=== PATIENT | male | born 2000 | race Caucasian/White ===

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

== ENCOUNTER 2021-10-07 19:03 | Emergency (ER) | payer OTHER ==
[2021-10-07 19:09] VITALS: BP 112/55; PULSE 74; TEMP 98.1; BMI 25.7
[2021-10-07] MEDS ORDERED: FAMOTIDINE 20 MG/50 ML IVPB 20 MG/50 ML MG IVPB ONE ×2 (20:21→20:25)
[2021-10-07 21:51] LABS: BASO % 0.8 % (0-2.0); EOS % 6.9 % (0-4.5); HEMATOCRIT 41.1 % (35.4-49); HEMOGLOBIN 13.4 GM/dL (11.7-16.9); LYMPH % 25.1 % (8-40); MCH 27.3 pg (25.7-33.7); MCHC 32.6 g/dl (32.0-35.9); MEAN CELL VOLUME 83.8 fl (80-96); MEAN PLT VOLUME 12.4 fl (7.5-11.1); MONO % 8.9 % (3.8-10.2); NEUT % 58.3 % (42.8-82.8); PLATELET COUNT 109 10^3/uL (134-434); RDW 13.5 % (11.9-15.9); WHITE BLOOD COUNT 6.5 K/mm3 (4.0-10.0)
[2021-10-07 22:06] LABS: BLOOD UREA NITROGEN 14.9 mg/dL (7-18)
[2021-10-07 22:10] LABS: CREATININE 0.8 mg/dL (0.55-1.3)
[2021-10-07 22:11] LABS: BILIRUBIN,TOTAL 0.5 mg/dL (0.2-1); TOT PROT 6.9 g/dl (6.4-8.2)
== END 2021-10-07 22:22 | disposition home or self-care (01) ==
LOC: FER 19:03
PROC: 3E033GC Introduction of Other Therapeutic Substance into Peripheral Vein, Percutaneous Approach (ICD-10-PCS; principal; 2021-10-07)
DX: R10.13 Epigastric pain (principal)
CPT/HCPCS: 36415; 80053; 81003; 81015; 85025; 99284-25

== ENCOUNTER 2021-11-13 12:19 | Emergency (ER) | payer OTHER ==
[2021-11-13 12:49] VITALS: BP 132/77; PULSE 87; TEMP 98.8; BMI 26.6
[2021-11-13] MEDS ORDERED: MAG HYDROX/AL HYDROX/SIMETH 30 ML UNIT-DOSE CUP PO ONE (13:01)
[2021-11-13] MEDS ORDERED: ACETAMINOPHEN 325 MG TABLET (FP) PO ONE (13:01)
[2021-11-13] MEDS ORDERED: FAMOTIDINE 20 MG/50 ML IVPB 20 MG/50 ML MG IVPB ONE (13:01)
[2021-11-13] MEDS ORDERED: LIDOCAINE VISCOUS 2% ORAL/TOP 15 ML UNIT-DOSE CUP MM ONE (13:03)
[2021-11-13] MEDS ORDERED: FAMOTIDINE 10 MG TABLET PO ONE (13:06)
[2021-11-13] MEDS ORDERED: MAG HYDROX/AL HYDROX/SIMETH 30 ML UNIT-DOSE CUP ONE (13:08)
[2021-11-13] MEDS ORDERED: FAMOTIDINE 20 MG TABLET ONE (13:08)
[2021-11-13] MEDS ORDERED: LIDOCAINE VISCOUS 2% ORAL/TOP 15 ML UNIT-DOSE CUP ONE (13:08)
[2021-11-13 14:01] LABS: HEMATOCRIT 41.4 % (35.4-49); HEMOGLOBIN 14.5 G/dL (11.7-16.9); MCH 28.8 pg (25.7-33.7); MCHC 34.9 g/dl (32.0-35.9); MEAN CELL VOLUME 82.6 fl (80-96); MEAN PLT VOLUME 11.7 fl (7.5-11.1); PLATELET COUNT 104.9 10^3/uL (134-434); RBC 5.01 10^6/uL (4.00-5.60); RDW 14.7 % (11.9-15.9); WHITE BLOOD COUNT 5.1 10^3/uL (4.0-10.8)
[2021-11-13 14:21] LABS: ALBUMIN 4.2 g/dl (3.4-5.0); BILIRUBIN,TOTAL 0.8 mg/dl (0.2-1); CALCIUM 9.5 mg/dl (8.5-10); CREATININE 0.8 mg/dl (0.55-1.3)
[2021-11-13 15:29] LABS: PLATELET ESTIMATE SLT DECREASE
== END 2021-11-13 15:14 | disposition home or self-care (01) ==
LOC: FER 12:19
DX: R10.13 Epigastric pain (principal)
CPT/HCPCS: 36415; 80053; 85025; 99283-25

== ENCOUNTER 2024-03-22 00:27 | Emergency (ER) | payer OTHER ==
[2024-03-22 00:43] VITALS: RESP 16; BMI 26.7
[2024-03-22 00:50] VITALS: BP 117/52; PULSE 90; TEMP 98.2
== END 2024-03-22 02:19 | disposition home or self-care (01) ==
LOC: FER 00:27
DX: R05.9 Cough, unspecified (principal)
CPT/HCPCS: 71045-TC-FY; 99283-25